=== PATIENT | male | born 2000 | race Caucasian/White ===

== ENCOUNTER 2018-04-02 21:31 | Emergency (ER) | payer OTHER ==
[2018-04-02 22:04] VITALS: BP 160/102
--- NOTE | 2018-04-02 22:13 | EDPHY ---
H & P Stated Complaint: strep throat- fast HR, sob Time Seen by Provider: 04/02/18 22:00 HPI/ROS: Chief Complaint: Palpitations, lightheaded HPI: 17-year-old male had an episode about an hour ago of feeling a rapid heartbeat and felt lightheaded. Patient has been sick for the last 2 days. He was in urgent care yesterday and diagnosed with strep throat. He was started on penicillin. He has taken about 5 doses of penicillin as it was prescribed 3 times a day. He has been having some intermittent fevers and chills but is not taking any Tylenol or ibuprofen. No nausea or vomiting. No chest pain. He did have some very mild shortness of breath. The episode lasted about 10 min and has since resolved. Did not lose consciousness. No family history of of sudden cardiac . No skin rash. Has had strep throat multiple times in the past. ROS: 10 systems were reviewed and were negative except those elements noted in the HPI. PMH: Denies Social History: No smoking, no alcohol, no recreational drug use Family History: non-contributory Physical Exam: Gen: Awake, Alert, No Distress HEENT: Nose: no rhinorrhea Eyes: PERRLA, EOMI Mouth: Moist mucosa moderate generalized oral pharyngeal erythema without edema or exudate Neck: Supple, no JVD Chest: nontender, lungs clear to auscultation Heart: S1, S2 normal, no murmur Abd: Soft, non-tender, no guarding Back: no CVA tenderness, no midline tenderness Ext: no edema, non-tender Skin: no rash Neuro: CN II-XII intact, Sensation grossly intact, Strength 5/5 in bilateral upper and lower extremities - Personal History Current Tetanus Diphtheria and Acellular Pertussis (TDAP): Yes - Medical/Surgical History Hx Asthma: No Hx Chronic Respiratory Disease: No Hx Diabetes: No Hx Cardiac Disease: No Hx Renal Disease: No Hx Cirrhosis: No Hx Alcoholism: No Hx HIV/AIDS: No Hx Splenectomy or Spleen Trauma: No - Social History Smoking Status: Never smoked Constitutional: Initial Vital Signs Temperature (C) 36.4 C 04/02/18 21:39 Heart Rate 106 H 04/02/18 21:39 Respiratory Rate 20 04/02/18 21:39 Blood Pressure 173/95 H 04/02/18 21:39 O2 Sat (%) 99 04/02/18 21:39 O2 Delivery Mode Room Air Allergies/Adverse Reactions: No Known Allergies Allergy (Unverified 04/02/18 21:39) Home Medications: Medication Instructions Recorded NK [No Known Home Meds] 04/02/18 Medical Decision Making ED Course/Re-evaluation: Healthy 17-year-old male with an episode of palpitations an hour ago likely associated with fever. He was recent diagnosed with strep throat. He has some oral pharyngeal erythema but is not remarkable for strep. He has had 24 hr of antibiotics. When I am evaluating him he is on the monitors heart rate is 88. Blood pressure is normal. Respiratory rate and oxygen saturations are normal. Is completely normal physical exam otherwise. He is a well-appearing. He has no murmurs. Symptoms consistent with his infection. Symptoms are not consistent with a penicillin reaction. I have encouraged him to continue taking his antibiotics as prescribed. He will alternate Tylenol with ibuprofen. Departure - Departure Disposition: Home, Routine, Self-Care Clinical Impression: Strep throat, Fever Condition: Good Instructions: Fever in Adults (ED) Additional Instructions: Alternate acetaminophen (1000 mg) with ibuprofen (400 mg) every 4 hours as needed for fevers, chills, aches or pain. Please take her full course of antibiotics. Follow up at [facility] in 2-3 days for further evaluation. Return to the emergency department for worsening heart racing, fainting, chest pain, shortness of breath, or any other concerns. Referrals: AIDEN MARQUEZ ,. [Clinic] - As per Instructions
== END 2018-04-02 22:21 | disposition home or self-care (01) ==
DX: J02.0 Streptococcal pharyngitis (principal); R50.9 Fever, unspecified; R42 Dizziness and giddiness